=== PATIENT | male | born 1940 | race Caucasian/White ===

== ENCOUNTER 2021-03-11 05:18 | Emergency (ER) | payer OTHER ==
[2021-03-11] MEDS ORDERED: EPINEPHrine 1 MG/10 ML SYR IV ONE (05:19)
--- NOTE | 2021-03-11 05:40 | ER ---
Nurse's Notes [facility] Name: Torri Tyler Age: 80 yrs Sex: Male : 1940 Arrival Date: 03/11/2021 Time: 05:19 Bed 3 Private MD: Diagnosis: Cardio - respiratory arrest Presentation: 03/11 05:37 Chief complaint: Spouse and/or significant other states: found unconscious by family. sv1 not breathing. Coronavirus screen: unknown. Ebola Screen: Unable to complete the Ebola screening because: Patient is unresponsive. Initial Sepsis Screen: Does the patient meet any 2 criteria? Temp <36.0*C (96.8*F)) or > 38.3*C (100.9*F). No. Patient's initial sepsis screen is negative. Risk Assessment: Do you want to hurt yourself or someone else? Unable to obtain. Onset of symptoms was March 11, 2021 at 04:00. 05:37 Method Of Arrival: EMS: [facility] sv1 05:37 Acuity: LEVI 1 sv1 Triage Assessment: 05:37 General: Appears distressed. Pain: Unable to use pain scale. Patient is intubated. sv1 - Social history:: unknown. Assessment: 05:52 Reassessment: BIBA full arrest. the patient was found on the floor by his family. Last sv1 known well is unknown. pupils were fixed and dilated. refer to code sheet for acls protocol.. 06:11 Reassessment: Family notified of the patient's . The family is in the treatment sv1 room. Vital Signs: 05:37 BP 0 / 0; Pulse 102; Resp 20; Temp 101.0; Pulse Ox 83% ; sv1 ED Course: 05:19 Patient arrived in ED. mw2 05:22 Prasanth Anand MD is Attending Physician. pkl 05:22 Police contacted [facility] [place] to have an officer call out the surgical training specialist for patient.[email or web address] 05:28 Police contacted [facility] to have the officer call out the surgical training specialist for the mw2 patient. 05:37 Darrian Brownlee RN is Primary Nurse. sv1 05:37 Arm band placed on right wrist. sv1 05:38 Prasanth Anand MD is Pronouncing Provider. pkl 05:51 Triage completed. sv1 Administered Medications: No medications were administered Outcome: 08:59 Patient left the ED. 1 Signatures: Prasanth Anand MD MD pkl Dima Jj 2 Sulma Stevenson RN RN ll1 Darrian Brownlee RN RN sv1
--- NOTE | 2021-03-11 05:41 | EDPHYS ---
Physician Documentation [facility] Name: Torri Tyler Age: 80 yrs Sex: Male : 1940 Arrival Date: 03/11/2021 Time: 05:19 Bed 3 Private MD: ED Physician Prasanth Anand HPI: 03/11 05:23 This 80 yrs old Male presents to ER via Unassigned with unknown complaint. pkl 05:23 Preceding the arrest, the patient was found down by family. The arrest occurred at [facility]. EMS found patient unresponsive and warm to touch at the scene. Unknown down time. CPR initiated by EMS for about 10 times at scene. Unable to establish IV access.. 05:23 Family said patient had been vomiting blood last night.. pkl - Social history:: unknown. ROS: 05:23 Unable to obtain ROS due to comatose state. pkl 05:37 ENT: Negative for injury, pain, and discharge. pkl Exam: 05:23 Head/Face: Normocephalic, atraumatic. pkl 05:23 Eyes: Pupils: are fixed and dilated. 05:23 ENT: Exam is negative for acute changes. 05:23 Neck: Exam negative for nuchal rigidity. 05:23 Chest/axilla: Exam negative for acute changes. 05:23 Cardiovascular: Pulses: not palpable. 05:23 Respiratory: patient ventilated. 05:23 Abdomen/GI: Exam negative for acute changes. 05:23 Back: Exam negative for acute changes. 05:23 : Exam negative for acute changes. 05:23 Musculoskeletal/extremity: Exam is negative for acute changes. 05:23 Skin: warm. 05:23 Neuro: Orientation: unable to test, the patient is intubated, Mentation: unable to test, the patient is intubated, Cranial nerves: unable to test, the patient is intubated, Cerebellar function: unable to test, the patient is intubated, Motor: unable to test, the patient is intubated, Sensation: unable to test, the patient is intubated. Vital Signs: 05:37 BP 0 / 0; Pulse 102; Resp 20; Temp 101.0; Pulse Ox 83% ; sv1 MDM: 05:22 Patient medically screened. pkl 05:22 Patient medically screened. pkl 05:35 Data reviewed: vital signs, nurses notes. ED course: CPR unsuccessful. Pronounced pkl at 0514. Administered Medications: No medications were administered Disposition: 05:35 . 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
[2021-03-11 09:03] VITALS: BP 0/0; TEMP 101; O2SAT 83
== END 2021-03-11 08:59 ==
LOC: ER 05:18
DX: I46.9 Cardiac arrest, cause unspecified (principal)
CPT/HCPCS: 99284; J0171